=== PATIENT | male | born 1940 | race Caucasian/White ===

== ENCOUNTER 2016-11-20 11:47 | Day surgery (SDC) | payer OTHER ==
[2016-11-14 15:11] LABS: BASOPHILS 0.1 %; BASOPHILS ABSOLUTE 0.01 10/3/uL (0.0-0.16); EOSINOPHILS 6.6 %; EOSINOPHILS ABSOLUTE 0.65 10/3/uL (0.0-0.53); HEMATOCRIT 42.4 % (40.0-51.0); HEMOGLOBIN 13.8 g/dL (13.6-17.8); IMMATURE GRANULOCYTES 0.3 %; IMMATURE GRANULOCYTES ABSOLUTE 0.03 10/3/uL (0.0-0.11); LYMPHOCYTES 24.9 %; LYMPHOCYTES ABSOLUTE 2.47 10/3/uL (0.67-4.30); MEAN CORPUS HGB CONC 32.5 g/dL (32.0-36.0); MEAN CORPUSCULAR HEMOGLOB 31.1 pg (26.0-34.0); MEAN CORPUSCULAR VOLUME 95.5 fL (80-100); MONOCYTES 6.3 %; MONOCYTES ABSOLUTE 0.62 10/3/uL (0.21-1.20); NEUTROPHILS 61.8 %; NEUTROPHILS ABSOLUTE 6.14 10/3/uL (2.02-8.40); PLATELET COUNT 155 10/3/uL (150-400); RBC DISTRIBUTION WIDTH 14.1 % (12.0-16.0); RED CELL COUNT 4.44 10/6/uL (4.7-6.1); WHITE BLOOD CELLS 9.9 10/3/uL (4.5-10.5)
[2016-11-14 15:17] LABS: MANUAL DIFF NO %
[2016-11-14 15:18] LABS: CALCIUM, SERUM 9.3 MG/DL (8.5-10.4); CHLORIDE, SERUM 105 MMOL/L (96-112); CO2 (CARBON DIOXIDE) 31 MMOL/L (24-34); CREATININE 1.44 MG/DL (0.70-1.30); GFR AFRICAN AMERICAN 54 ML/MIN (>=60); GFR NON AFRICAN AMERICAN 47 ML/MIN (>=60); POTASSIUM, SERUM 4.3 MMOL/L (3.5-5.3); SODIUM, SERUM 142 MMOL/L (135-148)
[2016-11-14 15:19] LABS: BUN (BLOOD UREA NITROGEN) 21 MG/DL (6-23); GLUCOSE, SERUM 155 MG/DL (60-99)
--- NOTE | ~2016-11-20 | OP ---
Record Of Operation [facility] [address] [place]. [address] NAME: KACIE BARRERA : 40 STATUS : [facility]#: [id number] AGE: 76 ADM/REG DATE : 11/20/16 MR#: [id number] REPORT SERV DATE: 11/21/16 DICTATED BY: PB WATERS III DATE: 11/20/16 REPORT STATUS : Draft TRANSCRIBED BY: JUAN CARLOS DATE: 11/20/16 DATE OF PROCEDURE: 11/20/2016 PROCEDURE: Cystoscopy, left retrograde and right ureteroscopy, and multiple bladder biopsies. PREOPERATIVE DIAGNOSES: 1. Bladder cancer, status post BCG and salvage and now mitomycin-C, with carcinoma in situ. 2. Positive washings on the left ureter. POSTOPERATIVE DIAGNOSES: 1. Bladder cancer, status post BCG and salvage and now mitomycin-C, with carcinoma in situ. 2. Positive washings on the left ureter. DESCRIPTION OF PROCEDURE: Following induction of adequate general anesthesia, the patient was placed in dorsal lithotomy position and prepped and draped in a sterile fashion. The urethra was normal. The prostate was unremarkable. No tumors were noted in the prostate. The bladder was entered. There was some erythema to the posterior wall on the left. No papillary tumors were noted. The bladder was inspected at both 70-degree and 30-degree lenses. A ureteroscope was placed into the left ureter with a wire and then passed without a wire all the way to the kidney. There were no tumors. No erythema. A retrograde was then done via the ureteroscope. 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 with x-ray guidance after re-instilling some dilute dye, and no tumors or areas of erythema were noted. The ureter was examined on the way out. No abnormalities were noted. The cystoscope was replaced and biopsies of the aforementioned erythematous areas were done with cold cups as well as two biopsies done on the opposite side, i.e. the right side of normal appearing tissue. Hemostasis was achieved, and an 18-[place] inserted for removal in 24 hours. The patient tolerated the procedure well. OB/MODL Pb Waters III, M.D. / [id number] CC: Pb Waters III, M.D.
[~2016-11-20 11:47] MED LIST: C5 PO; CAP12.5 PO; COR20 PO; DSS PO; FLOMAX4 PO; KLOR-CON M2020 MEQ PO; L40 PO; LAN25 PO; PERCOCET1 TA2 PO; SPIRO25 PO; XARELTO10 MG PO; ZOCOR40 PO
== END 2016-11-20 21:52 | disposition home or self-care (01) ==
LOC: SDC 11:47
PROVIDERS: Urology
PROC: 0TBB8ZX Excision of Bladder, Via Natural or Artificial Opening Endoscopic, Diagnostic (ICD-10-PCS; principal; 2016-11-20 13:15)
DX: D09.0 Carcinoma in situ of bladder (principal); I11.0 Hypertensive heart disease with heart failure; I50.9 Heart failure, unspecified; I48.91 Unspecified atrial fibrillation; F17.210 Nicotine dependence, cigarettes, uncomplicated; N40.0 Benign prostatic hyperplasia without lower urinary tract symptoms; Z90.5 Acquired absence of kidney; Z79.899 Other long term (current) drug therapy; Z85.528 Personal history of other malignant neoplasm of kidney
CPT/HCPCS: 74420; 80048; 85025; 88305; 93005; A9270-GY; C1758; C1769; J2405; J2710; J3010; Q9967